=== PATIENT | female | born 1955 | race Caucasian/White ===

== ENCOUNTER 2016-11-30 12:58 | Day surgery (SDC) | payer OTHER ==
[~2016-11-30 12:58] MED LIST: CLONAZEPAM0.125 MG/T PO; CLONAZEPAM0.5 MG PO; CLONAZEPAM1 M2 PO; CYCLOBENZAPRINE10 M1 PO; DEPAKOTE ER250 M1 PO; FORFIVO XL450 MG PO; LEXAPRO5 M1 PO; REXULTI1 MG PO; VALPROIC ACID250 M3 PO; VALTREX500 M1 PO; VISTARIL25 M1 PO; VITAMIN D32000 UNI2 PO; WELLBUTRIN SR200 M1 PO
[2016-12-01] MEDS ORDERED: PERCOCET 5-3251 EACH PO (01:16)
== END 2016-12-01 12:15 ==
LOC: SHSB 12:58 → ORW 14:43 → PACU 16:09 → OBGE 17:45
PROC: 0UT94ZZ Resection of Uterus, Percutaneous Endoscopic Approach (ICD-10-PCS; principal; 2016-11-30)
PROC: 0UTC4ZZ Resection of Cervix, Percutaneous Endoscopic Approach (ICD-10-PCS; 2016-11-30)
PROC: 0UT24ZZ Resection of Bilateral Ovaries, Percutaneous Endoscopic Approach (ICD-10-PCS; 2016-11-30)
PROC: 0UT74ZZ Resection of Bilateral Fallopian Tubes, Percutaneous Endoscopic Approach (ICD-10-PCS; 2016-11-30)
DX: D25.9 Leiomyoma of uterus, unspecified (principal); N84.0 Polyp of corpus uteri; N80.9 Endometriosis, unspecified; N83.202 Unspecified ovarian cyst, left side; E66.01 Morbid (severe) obesity due to excess calories; F41.9 Anxiety disorder, unspecified; F32.9 Major depressive disorder, single episode, unspecified; Z91.040 Latex allergy status; Z79.899 Other long term (current) drug therapy; Z79.891 Long term (current) use of opiate analgesic; Z87.891 Personal history of nicotine dependence
CPT/HCPCS: J0690; J1170; J3010; J7030